=== PATIENT | female | born 1985 | race Caucasian/White ===

== ENCOUNTER 2017-02-09 16:03 | Emergency (ER) | payer OTHER ==
--- NOTE | 2017-02-09 16:32 | ED.PDOC ---
History of Present Illness - General Chief Complaint: Headache Stated Complaint: Migraine Time Seen by Provider: 02/09/17 16:23 Source: patient, RN notes reviewed, Vital Signs reviewed Exam Limitations: no limitations - History of Present Illness Initial Comments: Patient comes in with c/o a migraine. Started last night. Similar to her usual migraines. She tried OTC medications w/o relief. She takes Topamax and Fioricet but is not taking the Topamax like she is suppose to and is out of the Fioricet. She can't take Imitrex due to chest tightness and SOB. Timing/Duration: 24 hours, constant Quality: moderate, throbbing Head Injury Location: frontal Recent Head Trauma: chronic headaches - Migraines Improving Factors: nothing Worsening Factors: other - Light Associated Symptoms: denies symptoms Allergies/Adverse Reactions: Allergies Sumatriptan [From Imitrex] Allergy (Verified 02/09/17 16:36) Home Medications: Ambulatory Orders Iklknpgwrveqg-Aczk-Jvtnesfnks [Fioricet] 1 ea PO Q4HR PRN #15 tab 02/09/17 Topiramate [Topamax] 100 mg PO BID PRN 02/09/17 Review of Systems - Review of Systems Constitutional: States: no symptoms reported EENTM: States: other - Photophobia Respiratory: States: no symptoms reported Cardiology: States: no symptoms reported Gastrointestinal/Abdominal: States: nausea Neurological: States: headache - with dizziness. Denies: numbness, paresthesia , tingling, weakness All other Systems: No Change from Baseline Family Medical History - Family History Grandparents Family History: Unknown Physical Exam - Physical Exam General Appearance: Alert, No apparent distress, Well Developed, Well Groomed, Well Hydrated, Well Nourished, Other - in obvious pain Eyes, Ears, Nose, Throat Exam: photophobia Neck: supple, normal inspection Cardiovascular/Chest: regular rate, rhythm, no gallop Respiratory: lungs clear, normal breath sounds, no respiratory distress, no accessory muscle use Extremity: normal range of motion, non-tender, normal inspection Mental Status: alert, 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 Her ride needs to leave soon. She is ready to go home. Departure - Departure Clinical Impression: Migraine Qualifiers: Migraine type: without aura Status migrainosus presence: without status migrainosus Intractability: not intractable Qualified Code(s): G43.009 - Migraine without aura, not intractable, without status migrainosus Time of Disposition: 17:11 Disposition: Discharge to Home or Self Care Condition: Good Departure Forms: ED Discharge - Pt. Copy, Patient Portal Self Enrollment Instructions: DI for Migraine Diet: resume usual diet Activity: increase activity as tolerated Prescriptions: Ppahlfdzdrhta-Ehch-Vlkrjfbiur [Fioricet] 1 ea PO Q4HR PRN #15 tab PRN Reason: Headache/Migraine Pain Home Medications: Ambulatory Orders Atlkqeiuvronp-Tfve-Sictpbqilv [Fioricet] 1 ea PO Q4HR PRN #15 tab 02/09/17 Topiramate [Topamax] 100 mg PO BID PRN 02/09/17
[2017-02-09] MEDS ORDERED: CODEINE PO ONE (16:35)
[2017-02-09] MEDS ORDERED: CAFFEINE PO ONE (16:35)
[2017-02-09] MEDS ORDERED: BUTALBITAL PO ONE (16:35)
[2017-02-09] MEDS ORDERED: ACETAMINOPHEN PO ONE (16:35)
[2017-02-09 17:38] VITALS: BP 116/81; TEMP 97.1; O2SAT 96
== END 2017-02-09 17:30 | disposition home or self-care (01) ==
LOC: ER 16:03
DX: G43.009 Migraine without aura, not intractable, without status migrainosus (principal); Z88.8 Allergy status to other drugs, medicaments and biological substances

== ENCOUNTER 2018-09-04 23:36 | Emergency (ER) | payer OTHER ==
[2018-09-05] MEDS ORDERED: LACTATED RINGERS 1,000 ML IVS ONE (00:18)
--- NOTE | 2018-09-05 00:18 | ED.PDOC ---
History of Present Illness - General Chief Complaint: [employer] Problem Stated Complaint: possible rupture of membranes, 31wks twin gestation Time Seen by Provider: 09/05/18 00:08 Source: patient Exam Limitations: no limitations - History of Present Illness Initial Comments: Promise Cota 33 y/o female presently 31 w/ega twin LMP-02/01/2019 [id number] EDC-08 November 2018 came to ER with possible fluid leak and felt uterine contractions started this afternoon. Timing/Duration: this afternoon Quality: intermittent, other - see hpi Onset Location: generalized flank Radiation: none Activites at Onset: none Prior abdominal problems: none - patient Sexual intercourse history: not active Improving Factors: nothing Worsening Factors: nothing Associated Symptoms: other - see hpi Allergies/Adverse Reactions: Allergies Sumatriptan [From Imitrex] Allergy (Verified 02/09/17 16:36) Home Medications: Ambulatory Orders Pvdulsxbpevog-Knst-Cioqgxmfyh [Fioricet] 1 ea PO Q4HR PRN #15 tab 02/09/17 Topiramate [Topamax] 100 mg PO BID PRN 02/09/17 Review of Systems - Review of Systems Constitutional: States: no symptoms reported EENTM: States: no symptoms reported Respiratory: States: no symptoms reported Gastrointestinal/Abdominal: States: see HPI All other Systems: Reviewed and Negative, No Change from Baseline Past Medical History (General) - Patient Medical History Hx Stroke: No Hx Cardiac Disorders: No Hx Congestive Heart Failure: No Hx Diabetes: No Hx Cancer: No Hx Hepatitis C: No Surgical History: no surgical history - Vaccination History Hx Tetanus, Diphtheria Vaccination: No Hx Influenza Vaccination: No Hx Pneumococcal Vaccination: No - Social History Hx Tobacco Use: Yes Hx Chewing Tobacco Use: No Hx Alcohol Use: No Hx Substance Use: No Hx Substance Use Treatment: No Hx Depression: No Hx Physical Abuse: No Hx Emotional Abuse: No Hx Suspected Abuse: No - Female History Patient : No Family Medical History - Family History Grandparents Family History: Unknown Physical Exam - Physical Exam General Appearance: Alert, Comfortable, No apparent distress Eyes, Ears, Nose, Throat Exam: PERRL/EOMI, normal ENT inspection Neck: supple, normal inspection Cardiovascular/Respiratory: regular rate, rhythm, no M/R/G, normal peripheral pulses Gastrointestinal/Abdominal: normal bowel sounds, non tender, soft, other - gravid uterus FHT A-130;B-136 Pelvic Exam: other - cervix close;nitrazine negative-green Progress - Progress Progress: 09/05/18 01:49 Vital Signs - 8 hr 09/04/18 09/05/18 09/05/18 23:36 00:53 00:56 Temperature 97.3 F L 97.3 F L Pulse Rate [ 101 H 72 90 left] Respiratory 18 16 18 Rate Blood Pressure 110/74 95/61 95/61 [left] O2 Sat by Pulse 98 96 96 Oximetry 09/05/18 01:47 Temperature 97.9 F Pulse Rate [ 68 left] Respiratory 18 Rate Blood Pressure 97/72 [left] O2 Sat by Pulse 96 Oximetry 09/05/18 01:49 No further uterine contractions felt by the patient stated had short weak non painful contraction 2-3 x less than 30 seconds while she was in ER room. - Results/Orders Results/Orders: Laboratory Results - last 24 hr 09/05/18 00:25 Urine Color Yellow Urine Appearance Clear Urine pH 5.5 Ur Specific [place] 1.025 Urine Protein Trace Urine Glucose (UA) Negative Urine Ketones Negative Urine Blood Negative Urine Nitrite Negative Urine Bilirubin Negative Urine Urobilinogen 0.2 Ur Leukocyte Esterase Negative Urine RBC 0-1 Urine WBC 0 Ur Epithelial Cells 5-10 Amorphous Sediment 1+ Urine Bacteria 0 Discuss test result with patient Departure - Departure Clinical Impression: Premature uterine contractions in third trimester, antepartum Twin gestation in third trimester Qualifiers: Multiple gestation type: unspecified Qualified Code(s): O30.003 - Twin , unspecified number of placenta and unspecified number of amniotic sacs, third trimester Time of Disposition: 01:53 Disposition: Discharge to Home or Self Care Condition: Fair Departure Forms: ED Discharge - Pt. Copy, Patient Portal Self Enrollment Instructions: Multiple Births Referrals: Jaxson Garcia MD [Primary Care Provider] - 1-2 Weeks Home Medications: Ambulatory Orders Jgtnqdykyrdzt-Swxh-Xuaocwbwre [Fioricet] 1 ea PO Q4HR PRN #15 tab 02/09/17 Topiramate [Topamax] 100 mg PO BID PRN 02/09/17 Additional Instructions: NEED TO GO TO [facility] IF UTERINE CONTRACTIONS GETTING MORE FREQUENT and PAINFUL SOON POSSIBLE for OB CARE with Dr. GARCIA-your Talent Engineer;Need to LAY DOWN ON LEFT SIDE
[2018-09-05 02:08] VITALS: BP 131/83; TEMP 98.2; O2SAT 99
== END 2018-09-05 02:05 | disposition home or self-care (01) ==
LOC: ER 23:36
DX: O47.03 False labor before 37 completed weeks of gestation, third trimester (principal); O30.003 Twin pregnancy, unspecified number of placenta and unspecified number of amniotic sacs, third trimester; Z3A.31 31 weeks gestation of pregnancy; Z87.891 Personal history of nicotine dependence; Z88.8 Allergy status to other drugs, medicaments and biological substances
CPT/HCPCS: 81001; J7120